=== PATIENT | female | born 1990 | race Caucasian/White ===

== ENCOUNTER 2017-01-02 01:32 | Outpatient (CLI) | payer OTHER | END 2017-01-02 01:33 | disposition critical access hospital (66) | LOC: EMS 01:32 | PROVIDERS: ATTEND Surgery | DX: R45.851 Suicidal ideations (principal) | CPT/HCPCS: A0425; A0427 ==

== ENCOUNTER 2017-01-02 01:53 | Emergency (ER) | payer OTHER ==
[2017-01-02] MEDS ORDERED: ONDANSETRON 4 MG/2 ML VIAL ONE ×2 (02:01→02:05)
[2017-01-02] MEDS ORDERED: ONDANSETRON 4 MG/2 ML VIAL IVP STA (02:02)
[2017-01-02] MEDS ORDERED: FAMOTIDINE 20 MG/50 ML 50 ML IV ONE ×2 (02:03→02:05)
[2017-01-02] MEDS ORDERED: SODIUM CHLORIDE 0.9% 1,000 ML IV ONE (02:04)
[2017-01-02 02:13] LABS: BASOPHILS # (AUTO) 0.3 10^3/uL (0.0-0.1); BASOPHILS % (AUTO) 4.1 %; EOSINOPHILS # (AUTO) 0.1 10^3/uL (0.0-0.7); EOSINOPHILS % (AUTO) 0.7 %; HCT - HEMATOCRIT 36.6 % (37.0-47.0); HGB - HEMOGLOBIN 12.6 g/dL (12.0-16.0); LYMPHOCYTES % (AUTO) 12.6 %; MEAN CORPUSCULAR HGB CONC 34.4 g/dL (32.0-36.0); MEAN CORPUSCULAR VOLUME 84.5 fL (81.0-99.0); MEAN PLATELET VOLUME 9.2 fL (7.9-10.8); MONOCYTES # (AUTO) 0.5 10^3/uL (0.0-1.0); NEUTROPHILS # (AUTO) 6.1 10^3/uL (1.5-6.6); NEUTROPHILS % (AUTO) 76.6 %; RED BLOOD COUNT 4.33 10^6/uL (4.20-5.40); RED CELL DISTRIBUTION WIDTH 13.4 % (12.0-15.0)
[2017-01-02 02:28] LABS: ACETAMINOPHEN < 10 ug/mL (10-30); ALBUMIN/GLOBULIN RATIO 1.6 (1.0-2.2); BILIRUBIN,TOTAL 0.5 mg/dL (0.2-1.0); BUN - BLOOD UREA NITROGEN 10 mg/dL (6-20); CALCIUM 8.6 mg/dL (8.5-10.3); CARBON DIOXIDE - CO2 18 mmol/L (21-32); CHLORIDE 106 mmol/L (101-111); CREATININE 0.6 mg/dL (0.4-1.0); GFR - MDRD 123 (>89); GLUCOSE 98 mg/dL (70-100); LIPASE 18 U/L (22-51); SALICYLATE < 6.0 mg/dL; SODIUM 140 mmol/L (135-145); TOTAL PROTEIN 6.8 g/dL (6.7-8.2)
[2017-01-02 03:11] LABS: BILIRUBIN,URINE NEGATIVE (NEGATIVE)
[2017-01-02 03:12] LABS: HCG UR QUAL NEGATIVE; UA w/ MICROSCOPIC CHARGE YES
[2017-01-02 03:18] LABS: UR CULTURE IF IND INDICATED
--- NOTE | 2017-01-02 05:55 | ED Physician Documentation ---
PD HPI MHE - Stated complaint Stated Complaint: SI HBD - Chief complaint Chief Complaint: MHE - History obtained from History obtained from: Patient, EMS - History of Present Illness Primary symptom: Suicidal ideation, Anxiety, Other (she was upset about losing her job today and was drinking alcohol. Denies drug use nor medication overdose. Denies regular alcohol use. She is also sad that her is on deployment currently. She was talking on phone to her friend in [place], and made some suicidal ideation comments. EMS called and the patient was altered mentation, empty liquor bottle near her, and she was vomiting. She appeared to be breathing quickly and had tingling and spasms of hands and around mouth.) Timing - onset: Today Contributing factors: Sig other (she is missing her who is on deployment.), Work (she says she lost her job today) Similar symptoms before: Has not had sx before Recently seen: Not recently seen Review of Systems Unable to obtain: Intoxicated Cardiac: denies: Chest pain / pressure Respiratory: denies: Dyspnea, Cough GI: reports: Nausea, Vomiting. denies: Diarrhea Skin: denies: Abrasion (s), Laceration (s) Neurologic: reports: Numbness (in hands and around face). denies: Headache, Head injury PD PAST MEDICAL HISTORY - Past Medical History Past Medical History: No Cardiovascular: None Respiratory: None Neuro: None Endocrine/Autoimmune: None - Past Surgical History Past Surgical History: No - Allergies Allergies/Adverse Reactions: Allergies Allergy/AdvReac Type Severity Reaction Status Date / Time No Known Drug Allergies Allergy Verified 01/02/17 01:58 - Social History Does the pt smoke?: No Smoking Status: Never smoker PD ED PE NORMAL - Vitals Vital signs reviewed: Yes - General General: Well developed/nourished. No: Alert and oriented X 3 (oriented to person and place, slightly somnolent, but good gag reflex and is having repetitive dry heaving. Breathing rate is fast and somewhat shallow. ) - HEENT HEENT: Atraumatic, Pharynx benign, Other (good gag reflex) - Neck Neck: Supple, no meningeal sign, No bony TTP, No adenopathy - Cardiac Cardiac: RRR, No murmur - Respiratory Respiratory: Clear bilaterally - Abdomen Abdomen: Normal bowel sounds, Soft, Non distended, No organomegaly, Other (some epigastric tenderness and guarding without rebound nor percussion tenderness. ) - Female Female : Deferred - Rectal Rectal: Deferred - Back Back: No CVA TTP - Derm Derm: Normal color - Extremities Extremities: No tenderness to palpate, Normal ROM s pain, No edema - Neuro Neuro: No motor deficit Results - Vitals Vitals: Vital Signs - 24 hr 01/02/17 01/02/17 01/02/17 01:53 02:09 03:01 Temperature 36.4 C L Heart Rate 90 85 82 Respiratory 28 H 28 H 16 Rate Blood Pressure 117/77 96/61 104/71 O2 Saturation 94 96 98 01/02/17 01/02/17 04:48 06:04 Temperature Heart Rate 79 77 Respiratory 16 18 Rate Blood Pressure 105/59 L 102/62 O2 Saturation 100 99 Oxygen O2 Source Room air - Labs Labs: Laboratory Tests 01/02/17 01/02/17 01/02/17 02:00 02:00 02:00 WBC 8.0 RBC 4.33 Hgb 12.6 Hct 36.6 L MCV 84.5 MCH 29.0 MCHC 34.4 RDW 13.4 Plt Count 284 MPV 9.2 Neut # 6.1 Lymph # 1.0 L [place] # 0.5 Eos # 0.1 Baso # 0.3 H Absolute Nucleated RBC 0.00 Nucleated RBCs 0.0 Sodium 140 Potassium 3.0 L Chloride 106 Carbon Dioxide 18 L Anion Gap 16.0 H BUN 10 Creatinine 0.6 Estimated GFR (MDRD) 123 Glucose 98 Calcium 8.6 Total Bilirubin 0.5 AST 24 ALT < 10 L Alkaline Phosphatase 125 H Total Protein 6.8 Albumin 4.2 Globulin 2.6 Albumin/Globulin Ratio 1.6 Lipase 18 L TSH 0.67 Urine Color Urine Clarity Urine pH Ur Specific [place] Urine Protein Urine Glucose (UA) Urine Ketones Urine Occult Blood Urine Nitrite Urine Bilirubin Urine Urobilinogen Ur Leukocyte Esterase Urine RBC Urine WBC Ur Squamous Epith Cells Urine Bacteria Ur Microscopic Review Urine Culture Comments Urine HCG, Qual Salicylates < 6.0 Urine Opiates Screen Ur Oxycodone Screen Urine Methadone Screen Ur Propoxyphene Screen Acetaminophen < 10 L Ur Barbiturates Screen Ur Tricyclics Screen Ur Phencyclidine Scrn Ur Amphetamine Screen U Methamphetamines Scrn U Benzodiazepines Scrn Urine Cocaine Screen U Cannabinoids Screen Ethyl Alcohol 131.7 01/02/17 01/02/17 03:01 03:01 WBC RBC Hgb Hct MCV MCH MCHC RDW Plt Count MPV Neut # Lymph # [place] # Eos # Baso # Absolute Nucleated RBC Nucleated RBCs Sodium Potassium Chloride Carbon Dioxide Anion Gap BUN Creatinine Estimated GFR (MDRD) Glucose Calcium Total Bilirubin AST ALT Alkaline Phosphatase Total Protein Albumin Globulin Albumin/Globulin Ratio Lipase TSH Urine Color YELLOW Urine Clarity CLEAR Urine pH 7.0 Ur Specific [place] <=1.005 Urine Protein NEGATIVE Urine Glucose (UA) NEGATIVE Urine Ketones 15 H Urine Occult Blood NEGATIVE Urine Nitrite NEGATIVE Urine Bilirubin NEGATIVE Urine Urobilinogen 0.2 (NORMAL) Ur Leukocyte Esterase TRACE H Urine RBC 0-5 Urine WBC 4-5 Ur Squamous Epith Cells FEW Squamous Urine Bacteria Few Ur Microscopic Review INDICATED Urine Culture Comments INDICATED Urine HCG, Qual NEGATIVE Salicylates Urine Opiates Screen NEGATIVE Ur Oxycodone Screen NEGATIVE Urine Methadone Screen NEGATIVE Ur Propoxyphene Screen NEGATIVE Acetaminophen Ur Barbiturates Screen NEGATIVE Ur Tricyclics Screen NEGATIVE Ur Phencyclidine Scrn NEGATIVE Ur Amphetamine Screen NEGATIVE U Methamphetamines Scrn NEGATIVE U Benzodiazepines Scrn NEGATIVE Urine Cocaine Screen NEGATIVE U Cannabinoids Screen NEGATIVE Ethyl Alcohol PD MEDICAL DECISION MAKING - ED course Complexity details: re-evaluated patient (She slept well for several hours. Awake and conversant this morning. Walks to bathroom okay. She is pleasant and talkative. She does not remember much of the prior evening,e xcept starting to drink some and talking with her friend on the phone. Does not remember ambulance ride. Does not recall any suicidal statements and does not feel any suicidal ideation now. She would like to go home and rest there. She denies prior suicidality, overdoses, nor excessive drinking. ), considered differential (seems like reactive depression and she denies prior suicide attempts/ overdoses. She is apparently intoxicated and hyperventilating. Given IV fluids and Zofran. Will also give dose Famotidine. This helps her calm and stop vomiting. She then sleeps for several hours with good vitals and sats. Will reassess her after few hours to see her state of depression and suicidality. ), d/w patient Departure - Departure Disposition: 01 Home, Self Care Clinical Impression: Reactive depression (situational), Hyperventilation, Suicidal ideation Alcoholic intoxication Qualifiers: Complication of substance-induced condition: uncomplicated Qualified Code(s): F10.120 - Alcohol abuse with intoxication, uncomplicated Vomiting Qualifiers: Vomiting type: unspecified Vomiting Intractability: non-intractable Nausea presence: with nausea Qualified Code(s): R11.2 - Nausea with vomiting, unspecified Condition: Stable Record reviewed to determine appropriate education?: Yes Instructions: ED Alcohol Intoxication, ED Nausea Vomiting Follow-Up: SHANNAN Wright [Provider Group] Comments: Frequent fluids today and bland food such as rice, breads, pastas, soup as your stomach will be upset from the alcohol and vomiting last night. Antacids such as Maalox, Mylanta, Tums can be useful. Tylenol if needed for pains. Recheck if not better over the next day or two. Avoid excess alcohol.
[2017-01-02 06:04] VITALS: BP 102/62
[2017-01-02] MEDS ORDERED: MAG HYDROX/AL HYDROX/SIMETH 30 ML UDC PO STA (06:35)
[2017-01-02] MEDS ORDERED: MAG HYDROX/AL HYDROX/SIMETH 30 ML UDC ONE (06:38)
== END 2017-01-02 06:47 | disposition home or self-care (01) ==
LOC: EDBD → ED 01:53
DX: F32.89 Other specified depressive episodes (principal); R06.4 Hyperventilation; R45.851 Suicidal ideations; F10.129 Alcohol abuse with intoxication, unspecified; R11.2 Nausea with vomiting, unspecified
CPT/HCPCS: 36415; 80053; 80306; 80307; 80320; 80329; 81001; 81025; 83690; 84443; 85025; 87077; 87086; 87181; 96374; 96375; 99284; A9270; 81003

== ENCOUNTER 2017-07-01 07:58 | Emergency (ER) | payer OTHER ==
[2017-07-01] MEDS ORDERED: ONDANSETRON 4 MG/2 ML VIAL IVP STA (08:21)
[2017-07-01] MEDS ORDERED: KETOROLAC 60 MG/2 ML VIAL IVP STA (08:21)
[2017-07-01] MEDS ORDERED: SODIUM CHLORIDE 0.9% 1,000 ML IV ONE (08:21)
[2017-07-01 08:44] LABS: BASOPHILS % (AUTO) 0.9 %; EOSINOPHILS # (AUTO) 0.1 10^3/uL (0.0-0.7); HGB - HEMOGLOBIN 13.3 g/dL (12.0-16.0); LYMPHOCYTES # (AUTO) 1.3 10^3/uL (1.5-3.5); LYMPHOCYTES % (AUTO) 25.7 %; MEAN CORPUSCULAR HEMOGLOBIN 29.6 pg (27.0-31.0); MONOCYTES # (AUTO) 0.3 10^3/uL (0.0-1.0); MONOCYTES % (AUTO) 5.8 %; NEUTROPHILS # (AUTO) 3.4 10^3/uL (1.5-6.6); NEUTROPHILS % (AUTO) 66.6 %; PLT - PLATELET COUNT 265 10^3/uL (130-450); RED BLOOD COUNT 4.49 10^6/uL (4.20-5.40); RED CELL DISTRIBUTION WIDTH 12.7 % (12.0-15.0); WHITE BLOOD COUNT 5.2 x10^3/uL (4.8-10.8)
[2017-07-01 09:02] LABS: ALBUMIN 4.7 g/dL (3.2-5.5); ALBUMIN/GLOBULIN RATIO 1.8 (1.0-2.2); ALKALINE PHOSPHATASE 89 IU/L (42-121); ALT ALANINE AMINOTRANSFERASE < 10 IU/L (10-60); AST ASPARTATE AMINOTRANSFERASE 17 IU/L (10-42); BILIRUBIN,TOTAL 0.6 mg/dL (0.2-1.0); BUN - BLOOD UREA NITROGEN 15 mg/dL (6-20); CALCIUM 8.8 mg/dL (8.5-10.3); CARBON DIOXIDE - CO2 25 mmol/L (21-32); CHLORIDE 105 mmol/L (101-111); CREATININE 0.6 mg/dL (0.4-1.0); GFR - MDRD 123 (>89); GLUCOSE 97 mg/dL (70-100); LIPASE 14 U/L (22-51); SODIUM 139 mmol/L (135-145); TOTAL PROTEIN 7.3 g/dL (6.7-8.2)
[2017-07-01] MEDS ORDERED: MECLIZINE 12.5 MG TABLET PO STA (09:05)
--- NOTE | 2017-07-01 09:05 | ED Physician Documentation ---
History of Present Illness - Stated complaint Stated Complaint: VOMITING/BODY ACHES - Chief complaint Chief Complaint: General - Additonal information Additional information: hx from pt 26 y/o f had a COLUNGA typical of her prior HAs yesterday s fever or neuro sx, she took apap 1500mg q4-6 hr for the better part of the day now her COLUNGA is gone but she has upper abd pain NV and feel dizzy denies fever cough no diarrhea LMP now denies preg denies other med ingestion Review of Systems Constitutional: denies: Fever, Chills Cardiac: denies: Chest pain / pressure, Palpitations Respiratory: denies: Dyspnea GI: reports: Abdominal Pain, Nausea, Vomiting. denies: Diarrhea : reports: LMP (now). denies: Now EGA (denies) Neurologic: reports: Headache (gone now) Endocrine: denies: Easy bruising / bleeding Immunocompromised: denies: Immunocompromised PD PAST MEDICAL HISTORY - Past Medical History Cardiovascular: None Respiratory: None Neuro: None Endocrine/Autoimmune: None - Past Surgical History Past Surgical History: No - Present Medications Home Medications: Ambulatory Orders Medication Instructions Recorded Confirmed Meclizine [Antivert] 25 mg PO Q6H PRN #20 tablet 07/01/17 Ondansetron Odt [Zofran] 4 mg TL Q6H PRN #10 tablet 07/01/17 raNITIdine [Zantac] 150 mg PO BID #60 tablet 07/01/17 - Allergies Allergies/Adverse Reactions: Allergies Allergy/AdvReac Type Severity Reaction Status Date / Time No Known Drug Allergies Allergy Verified 07/01/17 08:13 - Social History Does the pt smoke?: No Smoking Status: Never smoker Does the pt drink ETOH?: Yes Does the pt have substance abuse?: No - Immunizations Immunizations are current?: Yes - POLST Patient has POLST: No PD ED PE NORMAL - Vitals Vital signs reviewed: Yes - HEENT HEENT: PERRL, EOMI (haroon horiz nystagmus with vertigo) - Neck Neck: Supple, no meningeal sign - Cardiac Cardiac: RRR - Respiratory Respiratory: No respiratory distress, Clear bilaterally - Abdomen Abdomen: Soft, Other (TTP upper abd, no pelvic TTP) - Derm Derm: Normal color - Neuro Neuro: Alert and oriented X 3, No motor deficit Results - Vitals Vitals: Vital Signs - 24 hr 07/01/17 07/01/17 07/01/17 08:03 08:09 11:50 Temperature 36.4 C L 36.4 C L Heart Rate 84 84 71 Respiratory 16 16 14 Rate Blood Pressure 119/73 119/73 102/73 O2 Saturation 100 100 100 07/01/17 07/01/17 13:57 14:49 Temperature 37.3 C Heart Rate 72 Respiratory 16 Rate Blood Pressure 94/67 O2 Saturation 110 H Oxygen O2 Source Room air - Labs Labs: Laboratory Tests 07/01/17 07/01/17 07/01/17 08:30 08:30 08:30 WBC 5.2 RBC 4.49 Hgb 13.3 Hct 39.1 MCV 87.0 MCH 29.6 MCHC 34.0 RDW 12.7 Plt Count 265 MPV 9.0 Neut # 3.4 Lymph # 1.3 L [place] # 0.3 Eos # 0.1 Baso # 0.0 Absolute Nucleated RBC 0.00 Nucleated RBC % 0.0 PT INR Sodium 139 Potassium 3.3 L Chloride 105 Carbon Dioxide 25 Anion Gap 9.0 BUN 15 Creatinine 0.6 Estimated GFR (MDRD) 123 Glucose 97 Calcium 8.8 Total Bilirubin 0.6 Direct Bilirubin AST 17 ALT < 10 L Alkaline Phosphatase 89 Total Protein 7.3 Albumin 4.7 Globulin 2.6 Albumin/Globulin Ratio 1.8 Lipase 14 L Salicylates < 6.0 Acetaminophen 38 H Influenza A (Rapid) Influenza B (Rapid) Influenza Types A,B Ag 07/01/17 07/01/17 07/01/17 08:30 09:30 13:14 WBC RBC Hgb Hct MCV MCH MCHC RDW Plt Count MPV Neut # Lymph # [place] # Eos # Baso # Absolute Nucleated RBC Nucleated RBC % PT 12.5 13.1 H INR 1.1 1.2 Sodium Potassium Chloride Carbon Dioxide Anion Gap BUN Creatinine Estimated GFR (MDRD) Glucose Calcium Total Bilirubin Direct Bilirubin AST ALT Alkaline Phosphatase Total Protein Albumin Globulin Albumin/Globulin Ratio Lipase Salicylates Acetaminophen Influenza A (Rapid) Negative Influenza B (Rapid) Negative Influenza Types A,B Ag - 07/01/17 13:14 WBC RBC Hgb Hct MCV MCH MCHC RDW Plt Count MPV Neut # Lymph # [place] # Eos # Baso # Absolute Nucleated RBC Nucleated RBC % PT INR Sodium Potassium Chloride Carbon Dioxide Anion Gap BUN Creatinine Estimated GFR (MDRD) Glucose Calcium Total Bilirubin 0.7 Direct Bilirubin 0.1 AST 16 ALT < 10 L Alkaline Phosphatase 77 Total Protein 6.2 L Albumin 4.1 Globulin 2.1 Albumin/Globulin Ratio Lipase Salicylates Acetaminophen 14 Influenza A (Rapid) Influenza B (Rapid) Influenza Types A,B Ag - Rads (name of study) abd sono Radiology: See rad report (nl liver and GB) PD MEDICAL DECISION MAKING - ED course ED course: pt cannot tell me precisley how much apap she took but seems at min 6 g over 12 hr yesterday, now with a level of 38 and symptomatic d/w poison control rec rpt apap and LFTs 4-6 hr after first draw +/- NAC while waiting, if INR or LFTs abn at that time do full course of NAC rpt LFTs and APAP OK pt feeling better will dc Departure - Departure Disposition: 01 Home, Self Care Clinical Impression: Vertigo Vomiting Qualifiers: Vomiting type: unspecified Vomiting Intractability: non-intractable Nausea presence: with nausea Qualified Code(s): R11.2 - Nausea with vomiting, unspecified Tylenol overdose Qualifiers: Encounter type: initial encounter Injury intent: accidental or unintentional Qualified Code(s): T39.1X1A - Poisoning by 4-Aminophenol derivatives, accidental (unintentional), initial encounter Instructions: ED Dizziness UKO Prescriptions: Meclizine [Antivert] 25 mg PO Q6H PRN #20 tablet PRN Reason: Dizziness Ondansetron Odt [Zofran] 4 mg TL Q6H PRN #10 tablet PRN Reason: Nausea / Vomiting raNITIdine [Zantac] 150 mg PO BID #60 tablet Comments: You took too much tylenol yesterday but fortunately it was not a toxic / dangerous overdose and no liver damage has been done I am not sure if your abdominal pain and vomiting and dizziness are due to the tylenol or to a virus. But your labs and ultrasound are fine so i think it is safe for you to go home Do not take any more tylenol for at least a week. In the future only take medications as prescribed or as directed on the bottle - even over the counter medications can be dangerous. I have prescribed medication for your dizziness and nausea. You can try zantac for your abdominal pain Please follow up with your PMD for a recheck tomorrow or Wednesday unless completely better Return if worse Forms: Activity restrictions Discharge Date/Time: 07/01/17 14:54
[2017-07-01 09:31] LABS: ACETAMINOPHEN 38 ug/mL (10-30); SALICYLATE < 6.0 mg/dL
[2017-07-01 10:01] LABS: INR 1.1 (0.8-1.2); PT - PROTHROMBIN TIME 12.5 secs (9.9-12.6)
[2017-07-01] MEDS ORDERED: ONDANSETRON ODT 4 MG TABLET TL STA (11:39)
[2017-07-01 13:29] LABS: INR 1.2 (0.8-1.2); PT - PROTHROMBIN TIME 13.1 secs (9.9-12.6)
[2017-07-01 13:36] LABS: ACETAMINOPHEN 14 ug/mL (10-30); ALBUMIN 4.1 g/dL (3.2-5.5); ALKALINE PHOSPHATASE 77 IU/L (42-121); ALT ALANINE AMINOTRANSFERASE < 10 IU/L (10-60); AST ASPARTATE AMINOTRANSFERASE 16 IU/L (10-42); BILIRUBIN,DIRECT 0.1 mg/dL (0.1-0.5); BILIRUBIN,TOTAL 0.7 mg/dL (0.2-1.0); TOTAL PROTEIN 6.2 g/dL (6.7-8.2)
[2017-07-01 13:58] VITALS: BP 94/67
--- NOTE | 2017-07-02 08:56 | Ultrasound Report ---
DATE OF SERVICE: 07/01/2017 LIMITED ABDOMEN ULTRASOUND, LIVER AND GALLBLADDER: 07/01/2017 COMPARISON: None INDICATION: Evaluate liver and gallbladder. Abdominal pain and vomiting. TECHNIQUE: Sonographic evaluation of the liver and gallbladder was performed. FINDINGS: The liver appears normal in contour without masses. Portal venous flow is directed to the liver. There is no ascites. No hepatic masses are seen. The gallbladder appears unremarkable without stones, wall thickening or adjacent fluid. The common duct is nondilated measuring 4 mm. IMPRESSION: Negative evaluation of the liver and gallbladder. TD: 07/01/2017 19:18 MTDD
== END 2017-07-01 14:54 | disposition home or self-care (01) ==
LOC: ED 07:58
DX: R42 Dizziness and giddiness (principal); R11.2 Nausea with vomiting, unspecified; T39.1X1A Poisoning by 4-Aminophenol derivatives, accidental (unintentional), initial encounter
CPT/HCPCS: 36415; 76705; 80053; 80076; 80307; 80329; 83690; 85025; 85610; 87275; 87276; 96361; 96374; 99283; A9270; Q0162

== ENCOUNTER 2018-02-16 12:03 | Emergency (ER) | payer OTHER ==
[2018-02-16 12:24] LABS: BILIRUBIN,URINE NEGATIVE (NEGATIVE); GLUCOSE, URINE (UA) NEGATIVE (NEGATIVE); KETONES,URINE (UA) NEGATIVE (NEGATIVE); LEUKOCYTE ESTERASE, URINE SMALL (NEGATIVE); NITRITE,URINE NEGATIVE (NEGATIVE); OCCULT BLOOD,URINE LARGE (NEGATIVE); PROTEIN,URINE NEGATIVE (NEGATIVE); UROBILINOGEN,URINE 0.2 (NORMAL) E.U./dL (NORMAL)
[2018-02-16 12:37] LABS: CLARITY,URINE CLEAR (CLEAR)
[2018-02-16 13:00] LABS: BACTERIA,URINE Few /HPF (None Seen); RBC,URINE 0-5 /HPF (0-5); SQUAMOUS EPITHELIAL CELL,UR FEW Squamous (<= Few)
[2018-02-16 13:01] LABS: HCG UR QUAL POSITIVE
--- NOTE | 2018-02-16 14:13 | ED Physician Documentation ---
PD HPI FEMALE - Stated complaint Stated Complaint: 10WK PREG/BLEEDING - Chief complaint Chief Complaint: General - History obtained from History obtained from: Patient - History of Present Illness Timing - onset: How many hours ago (1), Today Timing - duration: Minutes (15) Timing - details: Abrupt onset, Now resolved Associated symptoms: Urinary frequency. No: Fever, Back pain, Pelvic pain, Vaginal discharge, Genital sore/lesion, Dysuria Contributing factors: (believes she is about 10 weeks by dates.) Similar symptoms before: Has not had sx before Recently seen: Not recently seen Review of Systems Constitutional: denies: Fever, Chills Nose: denies: Rhinorrhea / runny nose, Congestion Throat: denies: Sore throat Respiratory: denies: Cough GI: reports: Nausea. denies: Abdominal Pain, Vomiting, Diarrhea : reports: Frequency, Vaginal bleeding (today briefly), Now EGA (10 weeks by dates but not sure as had light period about 2 months ago). 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 - Present Medications Home Medications: Ambulatory Orders Medication Instructions Recorded Confirmed Cephalexin [Keflex] 500 mg PO TID #15 capsule 02/16/18 Pnv95/Ferrous Fumarate/FA 02/16/18 [ Formula Tablet] Vit#96/Ferrous Fum/FA 1 each PO DAILY #60 tablet 02/16/18 [ Tablet] - Allergies Allergies/Adverse Reactions: Allergies Allergy/AdvReac Type Severity Reaction Status Date / Time No Known Drug Allergies Allergy Verified 02/16/18 12:10 - Social History Does the pt smoke?: No Smoking Status: Never smoker Does the pt drink ETOH?: No Does the pt have substance abuse?: No - Immunizations Immunizations are current?: Yes - POLST Patient has POLST: No PD ED PE NORMAL - Vitals Vital signs reviewed: Yes - General General: Alert and oriented X 3, No acute distress, Well developed/nourished - Cardiac Cardiac: RRR, No murmur - Respiratory Respiratory: Clear bilaterally - Abdomen Abdomen: Normal bowel sounds, Soft, Non tender, Non distended, No organomegaly - Female Female : Deferred, Other (bedside U/S by me showing IUP, looking like 2 of them at same size, 5.6 weeks by GS. No free fluid in pelvis. ) - Rectal Rectal: Deferred - Back Back: No CVA TTP - Derm Derm: Normal color, Warm and dry, No rash Results - Vitals Vitals: Oxygen O2 Source Room air - Labs Labs: Microbiology 02/16/18 12:15 Urine Culture - Final Urine,Clean Catch Escherichia Coli Laboratory Tests 02/16/18 12:15 Urine Color YELLOW Urine Clarity CLEAR Urine pH 7.0 Ur Specific [place] <=1.005 Urine Protein NEGATIVE Urine Glucose (UA) NEGATIVE Urine Ketones NEGATIVE Urine Occult Blood LARGE H Urine Nitrite NEGATIVE Urine Bilirubin NEGATIVE Urine Urobilinogen 0.2 (NORMAL) Ur Leukocyte Esterase SMALL H Urine RBC 0-5 Urine WBC 4-5 Ur Squamous Epith Cells FEW Squamous Urine Bacteria Few Ur Microscopic Review INDICATED Urine Culture Comments INDICATED Urine HCG, Qual POSITIVE PD MEDICAL DECISION MAKING - ED course Complexity details: reviewed results (bedside U/S showing possible twins at 6 weeks size. No free fluid in pelvis. ), considered differential, d/w patient - Sepsis Event Vital Signs: Oxygen O2 Source Room air Departure - Departure Disposition: 01 Home, Self Care Clinical Impression: Bleeding in early UTI (urinary tract infection) Qualifiers: Urinary tract infection type: acute cystitis Hematuria presence: without hematuria Qualified Code(s): N30.00 - Acute cystitis without hematuria Condition: Stable Record reviewed to determine appropriate education?: Yes Instructions: Bleeding Early Preg, ED UTI Cystitis Female Prescriptions: Cephalexin [Keflex] 500 mg PO TID #15 capsule Vit#96/Ferrous Fum/FA [ Tablet] 1 each PO DAILY #60 tablet Comments: Drink lots of fluids. The ultrasound does show intrauterine that looks to be 5-6 weeks size. It looks possibly to be twins based on the initial ultrasound though a confirmatory ultrasound in a few weeks would be more accurate. Your urine test does show signs of an infection and this could be a cause of bleeding in early . Cephalexin 3 times a day for the next 5 days for the bladder infection. Tylenol if needed for pains. It would make sense to start a vitamin daily. Follow-up with your primary care when settled in to where you are moving. Discharge Date/Time: 02/16/18 14:47
[2018-02-16] MEDS ORDERED: cephALEXin 250 MG CAPSULE PO STA (14:26)
[2018-02-16 14:47] VITALS: BP 124/79
== END 2018-02-16 14:47 | disposition home or self-care (01) ==
LOC: ED 12:03
DX: O20.9 Hemorrhage in early pregnancy, unspecified (principal); Z3A.01 Less than 8 weeks gestation of pregnancy; N30.00 Acute cystitis without hematuria
CPT/HCPCS: 81001; 81025; 87086; 87181; 99283; A9270; 81003